=== PATIENT | male | born 1950 | race Caucasian/White ===

== ENCOUNTER 2017-02-22 17:01 | Inpatient (IN) | payer MEDICARE, OTHER ==
[~2017-02-22] VITALS: Ht 177.8 cm; Wt 76.8 kg
[2017-02-22] VITALS (10 sets, daily range): BP systolic 83–120; BP diastolic 61–83; PULSE 60–100; RESP 12–17; O2SAT 97
[2017-02-22] MEDS ORDERED: Heparin 1,000 Units/500 mL NS Premix IV ONE (17:08)
[2017-02-22] MEDS ORDERED: 0.9% Sodium Chloride 1,000 ML ONE (17:08)
[2017-02-22] MEDS ORDERED: Nitroglycerin 50,000 mcg/250 mL D5W Premix IV ONE (17:08)
[2017-02-22] MEDS ORDERED: Heparin 10,000 Unit/1,000 mL NS Premix IV ONE (17:08)
[2017-02-22] MEDS ORDERED: Heparin 1,000 Unit/mL 10 mL Inj ONE (17:08)
[2017-02-22] MEDS ORDERED: fentaNYL-PF 50 mCg/mL 2 mL Inj ONE (17:32)
[2017-02-22] MEDS ORDERED: Phenylephrine/NS-PF 100 mCg/mL 5 mL Syringe IVPUSH ONE (17:53)
[2017-02-22] MEDS ORDERED: DOPamine 800 mg/250 mL D5W Premix IV ONE (18:10)
--- NOTE | 2017-02-22 18:58 | CONS ---
[address] [address] CONSULTATION REPORT PATIENT: BRANDON KIMBROUGH : 1950 MR#: [id number] ADMIT: 02/22/2017 JOB ID: [id number] DATE OF SERVICE: 02/22/2017 CHIEF COMPLAINT: Chest discomfort. REFERRING PHYSICIAN: Dr. Hui at [facility]. CHIEF COMPLAINT: Chest discomfort. HISTORY OF PRESENT ILLNESS: This patient was transferred directly from [facility] Emergency Department to our dental lab technician. An EKG done at [facility] showed an acute anterior NV. The patient, at the time of interview, was having mild chest discomfort. He had received fentanyl en route. The patient states his chest discomfort has been going on for about a week. It was lasting 5-10 minutes. Today at around 1:00 it got worse. It went down his arms. He is finding it difficult to describe the pain; he states it was a dull discomfort. He denies any autonomic symptoms. As mentioned he came to the ER and was found to have an anterior NV and he was subsequently transferred to [facility]. PAST MEDICAL HISTORY: Mainly significant for prostrate cancer for which he had he had received radioactive seed implant. MEDICATIONS AT HOME: Flomax. ALLERGIES: None. FAMILY HISTORY: Negative for premature coronary artery disease. PERSONAL HISTORY: He is a smoker. He is a retired mailman. Denies any alcohol or drug abuse. He is in the process of relocating to [place]. REVIEW OF SYSTEMS: Comprehensive review of system was done and is as per HPI. Pertinent negatives are that there is no history of GI or bleeding. There is no upcoming surgery. There is no history of strokes or TIAs. PHYSICAL EXAMINATION: Elderly gentleman who looks his age. Mildly distressed. Neck: Supple. No JVD. Chest: Occasional rhonchi. Heart sounds: S1 and S2 regular. Positive S4. No murmurs or gallops. Abdomen: Soft. Femoral pulses 2+. DISTRIBUTION SPECIALIST: Alert and oriented x3. EKG is consistent with an acute anterior NV. Labs were unavailable. ASSESSMENT AND PLAN: This gentleman presented with an acute anterior NV. The patient verbalized consent for an intervention. The procedure was explained as well as the alternatives. The details of his angiogram are reported elsewhere. Briefly, he had a totally occluded proximal LAD, which was intervened upon. He has significant LV dysfunction. Hopefully this will improve over the next few days. He will be admitted to hospitalist service.u
--- NOTE | 2017-02-22 19:11 | DI95 ---
[address] [address] INTERVENTIONAL CARDIAC CATHETERIZATION PATIENT: BRANDON KIMBROUGH : 1950 MR#: [id number] ADMIT: 02/22/2017 JOB ID: [id number] DATE OF SERVICE: 02/22/2017 PROCEDURE: 1. Selective right and left coronary angiography. 2. Left heart catheterization. 3. Percutaneous intervention on the left anterior descending. INDICATION: Acute MT. PROCEDURAL DETAILS: The reader and the coders are referred to the procedure log for complete details. Briefly, a right femoral approach, 6-Indonesian system. ANGIOGRAPHIC FINDINGS: 1. Right coronary artery is a calcified vessel. It has mild diffuse disease of 20% to 30% in its entirety. No critical stenosis is noted. In the PDA distally, there is about a 50% lesion. 2. Left main: Short, no significant disease. 3. LAD: Totally occluded at its ostium. The remainder of the LAD shows heavy calcification. 4. Circumflex: A nondominant moderate to large caliber vessel. In its mid segment, it has about a 40% lesion. No critical stenosis is noted. 5. Left heart catheterization revealed an LVEDP of 18. There was no gradient upon pullback. INTERVENTIONAL REPORT: We then proceeded ahead with an intervention on the LAD. We were able to cross this with a Run-through wire. It was pre-dilated with a 2.0 balloon and then stented with a 3.25 x 15 mm stent. The proximal part of the lesion was dealt with with a 3.5 x 8 mm stent. Overlapping inflations were done at up to 24 atmospheres. Final angiographic result in the stented segment were excellent. Past the first major septal branch in the mid LAD there is an eccentric 60% lesion. Further down in the mid LAD at the bifurcation of the 3rd diagonal, there is another 50% to 60% lesion. Both of these were deliberately not intervened upon. LV-gram was a hand injection and showed severe LV dysfunction, apex and the anterolateral wall show severe hypokinesis to akinesis. The patient will have an echo in the morning. During this procedure, the patient was hypotensive. He was given Nishant-Synephrine and was briefly started on a dopamine drip at 10 mcg. His blood pressure came up nicely after opening up the artery and with a fluid bolus. The dopamine will gradually be tapered downward. The patient will be admitted to the hospitalist service with Cardiology to follow in the morning. Also, door to balloon time of 20 minutes.
[2017-02-22] MEDS ORDERED: 0.9% Sodium Chloride 400 ML (4 HRS) IV ONE (19:40)
[2017-02-22] MEDS ORDERED: Atropine 1 mg/10 mL (Code) Syringe IVPUSH PRN (19:40)
[2017-02-22] MEDS ORDERED: Sodium Chloride LOK Flush 10 mL Syringe IVFLUSH PRN (19:40)
[2017-02-22] MEDS ORDERED: 0.9% Sodium Chloride 250 ML BOLUS IV PRN (19:40)
[2017-02-22] MEDS ORDERED: Ondansetron 2 mg/mL 2 mL Inj IVPUSH PRN (19:40)
[2017-02-22] MEDS ORDERED: TAMS0.4C98 PO (22:58)
--- NOTE | 2017-02-22 23:01 | PCM.HPMED ---
Subjective Date of Service Feb 22, 2017 Primary Provider: Admitting Physician: Angelo Molina MD Primary Care Physician: Marlen Attending Physician: nAgelo Molina MD Admit Status: Direct Admit Chief Complaint: Chest pain History of Present Illness: Gary Byrnes is a 66-year-old male with past medical history significant for prostate cancer status post radiation and tobacco use who was directly admitted from [facility] ED due to EKG revealing acute anterior WI. Patient notes intermittent chest discomfort over the past week that he initially attributed to indigestion. Today the chest pain did not resolve and remained constant since late in afternoon. This precipitated his presentation to [facility]. He states he had some left arm numbness and tingling but aside from that denies any shortness of breath, palpitations, nausea, vomiting, diaphoresis, dizziness, or syncopal episodes. He was given aspirin and nitroglycerin at [facility] and then emergently transported to [facility]. Dr. Molina took him to the Senior Loan Processor which revealed a totally occluded proximal LAD which he stented with a drug-eluting stent. At the time of my examination after catheterization patient had some very minimal chest discomfort but otherwise had no complaints. Vitals at this time were temperature of 36.7, pulse 88, respiratory rate 16, blood pressure 94/72, oxygen sats 97% on 2 L nasal cannula. Review of Systems: Comprehensive review of systems was conducted with the patient and found to be negative except as noted above in HPI. Allergies Coded Allergies: No Known Allergies (Unverified , 02/22/17) Home Medications Flomax PMH Prostate cancer status post radioactive seed implant Tobacco use Surgical History Bilateral hernia repairs Sinus surgery Oral surgery Family History Sister in sleep thought to be cardiac in nature. Father with emphysema and CHF. Brother with ischemic heart disease. No premature cardiac family history. Social History Occupation: retired mailman Hx Alcohol Use: Yes (Heavy drinker. No alcohol in the last month. ) Hx Substance Use: No Hx Tobacco Use: Yes Smoking Status: Current Every Day Smoker Years of Smokin+ Living Arrangement: with Family Exam Vital Signs Vital Sign - Last Date Time Temp Pulse Resp B/P Pulse Ox O2 Delivery O2 Flow Rate FiO2 02/22/17 21:30 74 17 91/68 02/22/17 20:00 Supplement Oxygen 02/22/17 20:00 36.7 97 2.00 Exam General: No acute distress, well-developed, well-nourished, appropriately interactive HEENT: Normocephalic, atraumatic. External ears without defect. Pupils equal, round, and reactive to light and accommodation. Anicteric sclerae, moist conjunctivae, and no lid lag. Oropharynx free of erythema and cobble stoning with moist mucosa. Neck: Supple with full range of motion. No jugular venous distension. No bruits. No lymphadenopathy or thyromegaly. Cardiovascular: Regular rate and rhythm with no murmurs, rubs, or gallops appreciated Pulmonary: Faint wheezes bilaterally. Normal respiratory effort with no use of accessory muscles. Abdomen: Bowel tones present. Soft, nontender, nondistended. No hepatosplenomegaly or masses appreciated. Extremities: Right femoral catheterization site with dressing in place and no surrounding erythema. No clubbing, cyanosis, edema, or lymphadenopathy appreciated. Skin: Normal temperature, turgor, and texture; no rash, ulcers, or subcutaneous nodules appreciated. Neurological: Cranial nerves grossly intact. Normal muscle strength, tone, and bulk. Reflexes, coordination, and sensory function within normal limits. No known gait impairment. Psychiatric: Normal mood and affect. Alert and oriented to person, place, and time. Lab and Diagnostics 12-lead ECG Initial EKG at [facility] showed ST elevations in leads V2 through V5. Assessment & Plan Gary Byrnes is a 66-year-old male with past medical history significant for prostate cancer status post radiation and tobacco use who was directly admitted from [facility] ED due to EKG revealing acute anterior WI. Admitted for emergent cardiac catheterization. STEMI status post cardiac catheterization of the LAD, present on admission, active. - ECG at [facility] revealed ST elevation in leads V2 through V5. Emergently transferred and taken to medical laboratory technicians by Dr. Molina with placement of a drug-eluting stent in the proximal LAD. - Lipid panel pending. - Supplemental oxygen as needed. - Aspirin 81 mg initially received and continued daily. - Clopidogrel 75 mg daily. - Sublingual nitroglycerin and morphine as needed. - Metoprolol tartrate 25 mg every 6 hours. - Lisinopril 2.5 mg daily. - Atorvastatin 40 mg daily. - Cardiology following. Appreciate time and recommendations. Left ventricular dysfunction, present on admission, active. - Secondary to occluded LAD. Anticipate improvement over the next few days with stenting. - Echocardiogram ordered for tomorrow. -Treatment as above. Tobacco use disorder, present on admission, active. - Patient has a [id number] smoking history. - Declines nicotine patch at this time. - Smoking cessation encouraged. History of prostate cancer, present on admission, chronic. - Home regimen of Flomax held at this time as blood pressure has been labile. PRN Medications - Acetaminophen as needed for mild pain/fever/headache - Bowel regimen as needed - Antiemetic as needed Patient is admitted under inpatient status with expected length of stay greater than 2 midnights due to severity of presenting symptoms, risk of adverse event, and complexity of treatment plan. Pain Evaluation: Adequate Pain Control GI Prophylaxis: Not indicated Resuscitation Status: CPR: Attempt Resuscitation Time spent 1 hour critical care time spend Attending Statement The patient was seen and examined together with Dr. Aranda on 02/22 and I agree with the history, exam and plan as outlined in the note above. NATALEE ARANDA DO Feb 22, 2017 21:36 Philip Fernández MD Feb 23, 2017 02:38
[2017-02-22 23:03] LABS: BASOPHILS % (AUTO) 0.4 % (0-3); EOSINOPHILS % (AUTO) 0.2 % (0-5); MONOCYTES % (AUTO) 9.6 % (4-12); Mean Corpuscular Hemoglobin 33.7 pg (27.0-35.0); Mean Corpuscular Volume 94.6 fL (81-100); NEUTROPHILS % (AUTO) 74.8 % (40-74); Platelet Count 252 bil/L (150-400)
[2017-02-22 23:35] LABS: Magnesium 1.8 mg/dL (1.6-2.6); Phosphorus 3.7 mg/dL (2.5-4.9)
[2017-02-23] VITALS (10 sets, daily range): BP systolic 86–104; BP diastolic 51–67; PULSE 56–64; RESP 12–21; O2SAT 95–100
[2017-02-23] MEDS ORDERED: 0.9% Sodium Chloride 250 ML IV ONE (00:20)
[2017-02-23 01:32] LABS: APPEARANCE,URINE CLEAR (CLEAR,HAZY); COLOR,URINE YELLOW (YELLOW)
[2017-02-23 01:33] LABS: OCCULT BLOOD,URINE NEGATIVE (NEGATIVE); UROBILINOGEN,URINE NORMAL (NORMAL)
--- NOTE | 2017-02-23 04:51 | NUR ---
P) Admit Pt. admitted to CCU from labor relations consultant at approx. 1855, s/p STEMI, stent to LAD. R groin dressing C/D/I, area soft and slightly tender, pt. initially had chest pressure 3-5/10, resolved. Cardiac rhythm afib, occasionally sinus, lots of ectopy and runs of V-tach, BP low though with MAP's generally in the 60's, systolics often in the 80's. Lungs with slightly coarse and decreased breath sounds, pedal pulses present and weak bilat. I) Consulted frequently with Dr. Woods regarding BP and heart rate, (often in the 50's, as low as 47bpm.) Bolus'd with 250ml NS x4, education regarding pulmonary hygiene and groin support with cough. E) Ectopy slowly decreasing, BP slowly rising, of note pt. on 2L per N/C, when this became disconnected he dropped to 89-91% on room air. Pt. states chest pressure has resolved and he has some low back pain from unfamiliar bed and positioning. Addendum: 02/23/17 at 0633 by EMILE SMITH RN Metoprolol held due to hypotension and bradycardia, statin held as pt. was supine and did not want to try to take pill, states he is willing to take it tonight.
--- NOTE | 2017-02-23 08:22 | NUR ---
Cardiac Borderline blood pressure, systolic upper 80s to 90s. MAP >65. Continues in SB with IVCD and inverted t-waves, HR mid 50s. Denies chest discomfort. Right groin site non-tender and soft to palpitation, no sign of active bleeding. +1 bilateral pedal pulses. Lisinopril and metoprolol scheduled for 8:30, medications held due to blood pressure and bradycardia. Dr Kaye notified and Dr Bynum paged. Will continue to monitor.
--- NOTE | 2017-02-23 10:53 | PCM.PNMED ---
Subjective Date of Service Feb 23, 2017 Subjective Mr. Byrnes is a 66-year-old male with past medical history significant for prostate cancer s/p radiation and tobacco use who was directly admitted from [facility] ED due to EKG revealing acute anterior PR. Admitted for emergent cardiac catheterization, found 100% occlusion and LAD, received drug-eluting stent placement yesterday Overnight patient was found to be hypotensive requiring total of 1 L normal saline bolus and 250 mL increments, sinus bradycardia. Denied any chest discomfort. Catheter insertion site remains tender to palpation. Patient in good spirits, does not state he has any chest pain or discomfort. Exam Vital Signs Vital Sign - Last Date Time Temp Pulse Resp B/P Pulse Ox O2 Delivery O2 Flow Rate FiO2 02/23/17 08:59 56 21 96/51 95 Room Air 02/23/17 07:07 36.7 2.00 Intake and Output 02/22/17 02/22/17 02/23/17 Cumulative From/Thru 15:00 23:00 07:00 02/22/17 19:46 - 02/23/17 06:06 Intake Total 1514 ml 1514 ml Output Total 1100 ml 1100 ml Balance 414 ml 414 ml Intake Oral 50 ml 50 ml IV Total 1464 ml 1464 ml Output Urine Total 1100 ml 1100 ml Exam General: Awake and alert laying in hospital bed in no acute distress, thin, appropriately interactive HEENT: Normocephalic, atraumatic. External ears without defect. Pupils equal, round, and reactive to light and accommodation. Tobacco stains on barton surrounding oral cavity. Neck: Supple with full range of motion. No jugular venous distension. Cardiovascular: Cardiac rate with regular rhythm with no murmurs appreciated. Pulmonary: Right lower lobe crackles, Normal respiratory effort with no use of accessory muscles. Abdomen: Bowel tones present. Soft, nontender, nondistended. Extremities: No clubbing, cyanosis, edema, or lymphadenopathy appreciated. Skin: Normal temperature, turgor, and texture Neurological: Cranial nerves grossly intact. Psychiatric: Normal mood and affect. Alert and oriented to person, place, and time. IVs and Medications Medications Reviewed: Medications were reviewed in detail Lab and Diagnostics Result Diagram: 02/22/17 2301 02/23/17 0807 12-lead ECG Initial EKG at [facility] showed ST elevations in leads V2 through V5. Assessment & Plan Gary Byrnes is a 66-year-old male with past medical history significant for prostate cancer status post radiation and tobacco use who was direct admit from [facility] ED, status post cardiac cath with stent placement. Hospital day 2. STEMI status post cardiac catheterization of the LAD, present on admission, active. - ECG at [facility] revealed ST elevation in leads V2 through V5. Emergently transferred and taken to wetlands conservation laborer by Dr. Molina with placement of a drug-eluting stent in the proximal LAD. - Supplemental oxygen as needed. - Aspirin 81 mg - Clopidogrel 75 mg daily. - Sublingual nitroglycerin and morphine as needed. - Held Metoprolol tartrate 25 mg every 6 hours, and early hemodynamic state - Lisinopril 2.5 mg daily. - Atorvastatin 40 mg daily. - Cardiology following. Appreciate time and recommendations. Left ventricular dysfunction, present on admission, active. - Secondary to occluded LAD, s/p drug-eluting stent placement - Echocardiogram pending - Treatment as above. Tobacco use disorder, present on admission, active. - Patient has a [id number] smoking history. - Declines nicotine patch at this time. - Smoking cessation encouraged. History of prostate cancer, present on admission, chronic. - Home regimen of Flomax held at this time as blood pressure has been labile. PRN Medications - Acetaminophen as needed for mild pain/fever/headache - Bowel regimen as needed - Antiemetic as needed Patient is admitted under inpatient status with expected length of stay greater than 2 midnights due to severity of presenting symptoms, risk of adverse event, and complexity of treatment plan. Anticipate difficulty with follow-up treatment on discharge. GI Prophylaxis: Not indicated VTE Prophylaxis: Other Resuscitation Status: CPR: Attempt Resuscitation Time spent 30 minutes Attending Statement Patient has been seen and examined by myself with medical lab tech instructor and agree with above history, physical, assessment and plan. KEELEY VINSON DO Feb 23, 2017 10:53 Lucero Kaye MD Feb 23, 2017 17:21
[2017-02-23] MEDS ORDERED: [UNRECOGNIZED DRUG - OTHER] PO (11:22)
[2017-02-23] MEDS ORDERED: CHOL10008 PO (11:23)
--- NOTE | 2017-02-23 15:56 | DRSVH ---
[facility] [address] [place] [address] Echocardiogram Report Name: BRANDON KIMBROUGH LStudy Corey e: 02/23/2017 Height: 70 in Hospital Exam Location: [facility] Weight: 168 lb Gender: Other BSA: 1.9 m2 : 1950 Age: 66 yrs BP: 85/62 mmHg Reason For Study: STEMI Ordering Physician: Performed By: Sahil Oakley Interpretation Summary The ejection fraction is estimated to be 30-35%. There is extensive hypokinesis in the region supplied by the LAD. Mid to distal anterior wall, anteroseptum, apex, and distal inferior segment are serverly hypokinetic. Mid anterolateral is hypokinetic. There is no significant valvular heart disease. Procedure: A two-dimensional transthoracic echocardiogram with color flow and Doppler was performed. The study quality was technically good. There is no prior echocardiogram noted for this patient. The patient was in sinus bradycardia with heart rates between 52-65 bpm during the exam. Left Ventricle: The left ventricle is normal in size. There is normal left ventricular wall thickness. There is mild proximal septal thickening noted. The ejection fraction is estimated to be 30-35%. There is extensive hypokinesis in the region supplied by the LAD. Mid to distal anterior wall, anteroseptum, apex, and distal inferior segment are serverly hypokinetic. Mid anterolateral is hypokinetic. Right Ventricle: The right ventricle grossly appears normal in size with probable normal systolic function. Atria: Both atria are normal in size. The interatrial septum is intact with no evidence for an atrial septal defect. Mitral Valve: The mitral valve is normal. There is trace mitral regurgitation. Aortic Valve: The aortic valve is normal in structure and function. No aortic regurgitation is present. Tricuspid Valve: The tricuspid valve is normal. Pulmonary artery pressures cannot be estimated because of the lack of a measurable TR jet velocity. Pulmonic Valve: The pulmonic valve leaflets are thin and pliable; valve motion is normal. There is no pulmonic valvular regurgitation. Great Vessels: The aortic root is normal size. The ascending aorta is mildly enlarged. The pulmonary artery is normal size. The IVC is dilated (diameter is greater than 2.1 cm) yet it collapses greater than 50% with a sniff. This suggests a right atrial pressure of 8 mm Hg. Pericardium/ Pleura There is no pericardial effusion. There is no pleural effusion. MMode/2D Measurements & Calculations LVIDd: 5.0 cm RA long axis LVOT diam LVIDs: 3.8 cm LA A2 area: 18.4 cm FS: 24.5 % LA A4 area: 15.4 cm RA area AoV Opening EPSS: 0.78 cm LA length (vol): 4.7 cm IVSd: 1.2 cm LA vol: 51.8 ml : 15.0 cm Ao root diam LVPWd: 0.90 cm LA vol index RA vol : 35.6 ml asc Aorta RA Diam: 3.9 cm IVC diam: 3.3 cm : 18.4 mm2 LV hensley. diameter/BSA LV sys. diameter/BSA RVD1 (basal) TAPSE: 2.0 cm (cm/m^2): 2.6 (cm/m^2): 1.9 Doppler Measurements & Calculations Ao V2 max: 121.2 cm/secMV E max teofilo MV E/A: 1.2 PA V2 max Ao max P.9 mmHg : 55.6 cm/sec Med Peak E' Teofilo : 70.5 cm/sec Ao mean P.2 mmHg MV A max teofilo PA mean PG LVOT Max Teofilo : 47.3 cm/sec E/E' med: 10.0 : 1.1 mmHg : 106.4 cm/sec Lat Peak E' Teofilo ALVARO(I,D): 3.2 cm sev ratio: 0.84 E/E' lat: 8.0 E/e' average: 9.0 MV dec time: 0.15 sec Ao V2 mean LV V1 max PG PA V2 mean : 84.4 cm/sec : 49.4 cm/sec Ao V2 VTI: 23.1 cmLV V1 VTI: 19.4 cm PA pr(Accel) ALVARO(V,D): 3.3 cm2 : 27.6 mmHg ALVARO indexed to BSA (cm^2/m^2): 1.6 Electronically signed by: Angelo Molina on Reading Physician:02/23/2017 03:55 PM
--- NOTE | 2017-02-23 17:32 | NUR ---
PCC Assumed pt care at 1640, report taken from Kylie Ramirez CCU RN. Pt resting, notes on white board to remind pt to ask MD during rounds. Care continues.
--- NOTE | 2017-02-23 17:47 | NUR ---
Social Work- Initial Assessment/Multidisciplinary Rounds Data: See Initial Assessment and DPOA Intervention for additional information. Pt is a 66 year old male admitted for STEMI per H&P. Pt's insurance is [employer]. Pt's PCP is Andrés Handley M.D at [facility] in [place]. Pt's readmit risk score is not entered at this time. Pt discussed in rounds, pt is likely to discharge home. Pt will require PCP and Cardiology follow up. Pt is s/p stent placement. It is recommended pt stop drinking and smoking. SW acknowledges PCP and Cardiology follow up order. SW met with pt at bedside regarding discharge plan, SW role explained. Pt alert and oriented x3. Pt's capacity for self-care assessed. Pt resides near [place] with his on a farm. Pt is independent with ADLs and self-care. No concerns identified. Pt has no HH or SNF history. Pt uses no DME and drives. Pt states that he has DPOA, SW requested this paperwork. SW discussed PCP follow up, pt states that he is moving to [place] soon and does not want to switch his PCP again before his move. Pt is agreeable that he will follow up in [place] with his original PCP Dr. Handley. Pt is hopeful that his Cardiology follow up could be done closer to [place], but is agreeable to driving to as necessary. Pt also had concerns related to the cost of his Rx. SW discussed that we cannot silver prescriptions until they are known. Pt requests that REFERENCE DATA EXPERT run scripts prior to discharging to ensure pt can afford them. SW also discussed etoh and tobacco cessation. Pt states he is motivated to stop smoking and drinking, acknowledges the negative impact on his health. Pt declined any resources related to CD. Pt will discharge home with his to transport via POV. SW provided phone number and plan on whiteboard. Discharge Planning checklist given. Pt agreeable to plan. Assessment: Pt who is independent at baseline. Plan: SW to discuss with pt's d/c prescriptions and follow up plan. SW may have to check with pharmacy regarding pt's Rx coverage prior to d/c. Pt will discharge home with his to transport via POV. SW will continue to follow. PADILLA Stephens Addendum: 02/23/17 at 1756 by GHAZAL MESSINA Amended: Links added.
--- NOTE | 2017-02-23 18:53 | PROG NOTE ---
[address] [address] PROGRESS NOTE PATIENT: BRANDON KIMBROUGH : 1950 MR#: [id number] ADMIT: 02/22/2017 JOB ID: [id number] DATE: 02/23/2017 Patient came in with an anterior WV, proximal LAD stent. He still does have a mid stenosis estimated in the range of at least 50-60%. Apparently this was deliberately not intervened upon. His LV function is reduced with anterior, anteroseptal wall hypokinesis. He has been having relative hypotension. Therefore, the medication doses that were written (the metoprolol and the lisinopril) were not given. The patient is doing well. He has no more chest pain. He feels well. PHYSICAL EXAMINATION: Blood pressure 193/57, heart rate 58, afebrile, and sats are 96% on room air. General: In no acute distress. Speaking in full sentences without being short of breath. CURRENT MEDICATIONS: Include: 1. Tylenol. 2. Plavix 75. 3. Aspirin 81. 4. Lipitor 40. 5. Again metoprolol and lisinopril were written at higher doses and thus none were given. LABORATORIES: Show white count 8.1, H and H 13 and 36.5, platelets of 252,000; that is from yesterday. His basic metabolic shows sodium 139, potassium 3.7, chloride and bicarb 103 and 20 respectively, and BUN and creatinine 9 and 0.61. CPK 3070, CPK MB 377. Troponin 10.87. Troponins have trended down. An echocardiogram was read and this shows an EF of 30, 35% and with wall motion abnormalities as expected. IMPRESSION: The patient is doing well. He had a fairly large anterior myocardial infarction. He has reduced the hypotension which is not entirely unexpected given his myocardial infarction. PLAN: Continue with aspirin and Plavix and statin. I will start low-dose metoprolol 12.5 b.i.d., and see if he can titrate this up as he tolerates. Will follow for any arrhythmias. [facility]
[2017-02-24 03:29] LABS: BASOPHILS % (AUTO) 0.6 % (0-3); EOSINOPHILS % (AUTO) 2.5 % (0-5); MONOCYTES % (AUTO) 9.2 % (4-12); Mean Corpuscular Hemoglobin 33.4 pg (27.0-35.0); Mean Corpuscular Volume 97.2 fL (81-100); NEUTROPHILS % (AUTO) 72.2 % (40-74); Platelet Count 218 bil/L (150-400)
[2017-02-24 03:35] VITALS: BP 91/56; PULSE 61; RESP 16; O2SAT 97
--- NOTE | 2017-02-24 05:22 | NUR ---
Hypotension Blood pressure at HS was 104/67; HS 12.5mg PO metoprolol administered. Decrease to blood pressure on reassessment - 87/60. MD shore, aware of vitals signs, instructed to monitor at this time. BP throughout shift maintained stable at 94/54 and 91/56. Patient asymptomatic. R groin C/D/I. Independent in room, tolerates well. Able to rest throughout shift.
[2017-02-24 05:37] VITALS: PULSE 61
[2017-02-24 08:00] VITALS: BP 95/53; PULSE 67; RESP 16; O2SAT 95
[2017-02-24 08:57] VITALS: PULSE 74
--- NOTE | 2017-02-24 12:21 | PCM.DIMED ---
Discharge Instructions Date of Service Feb 24, 2017 Dates of Hospitalization Feb 22, 2017 at 19:30 Discharge Diagnosis Discharge Diagnosis STEMI with LAD occlusion and drug-eluting stent placed Diet Discharge Diet: Heart Healthy Activity Discharge Activity: Other (Limited as per cardiology instructions) Call your provider Call your provider for: Fever or Chills, Shortness of breath, Bleeding, Chest pain, Vomitting, Excessive diarrhea, Weakness (unilateral) Patient Instructions Follow-up Provider: Angelo Molina MD Follow-up with PCP in: 1 week Provider: KEELEY VINSON DO Follow-up in: 1 week Lucero Kaye MD Feb 24, 2017 12:21
[2017-02-24] MEDS ORDERED: NITR0.4T SL (12:24)
[2017-02-24] MEDS ORDERED: ASPI81TA3 PO (12:24)
[2017-02-24] MEDS ORDERED: METO25TA6 PO (12:24)
[2017-02-24] MEDS ORDERED: CLOP75TA28 PO (12:24)
[2017-02-24] MEDS ORDERED: ATOR20TA65 PO (12:24)
--- NOTE | 2017-02-24 12:27 | NUR ---
Social Work: Readiness for Discharge/Multidisciplinary Rounds D: EMR reviewed. Pt is on day 2 of hospitalization. Pt discussed in multidisciplinary rounds and is medically stable for discharge home today. No SW needs identified, no MD orders received. Pt's discharge discussed with MD - no other concerns identified. Pt to transport home via POV with spouse today. SW discussed rx needs at discharge and concerns regarding costs. Pt provided with SW phone number for possible assistance with new rx costs. SW updated RN in multidisciplinary rounds. SW will continue to follow until time of discharge. A: Pt who is independent at baseline P: Pt to discharge home with spouse today via POV. Pt's discharge discussed with MD - no other concerns identified. SW discussed rx needs at discharge and concerns regarding costs. Pt provided with SW phone number for possible assistance with new rx costs. SW updated RN in multidisciplinary rounds. SW will continue to follow until time of discharge. PADILLA Osborn
--- NOTE | 2017-02-24 12:37 | PCM.DC.MED ---
Discharge Summary Date of Service Feb 24, 2017 Dates of Hospitalization Date of Hospital Admission Feb 22, 2017 at 19:30 Date of Discharge: Feb 24, 2017 Providers: Admitting Physician: Angelo Molina MD Primary Care Physician: Marlen Attending Physician: Ramesh Kaye MD Diagnosis at Time of Discharge Diagnosis at Time of Discharge STEMI with LAD occlusion and drug-eluting stent placed Consultations Cardiology Procedures ECG 12 Lead Initial EKG at [facility] showed ST elevations in leads V2 through V5. Cardiac Echo Impression Interpretation Summary The ejection fraction is estimated to be 30-35%. There is extensive hypokinesis in the region supplied by the LAD. Mid to distal anterior wall, anteroseptum, apex, and distal inferior segment are serverly hypokinetic. Mid anterolateral is hypokinetic. There is no significant valvular heart disease. Brief History Gary Byrnes is a 66-year-old male with past medical history significant for prostate cancer status post radiation and tobacco use who was directly admitted from [facility] ED due to EKG revealing acute anterior WV. Patient notes intermittent chest discomfort over the past week that he initially attributed to indigestion. Today the chest pain did not resolve and remained constant since late in afternoon. This precipitated his presentation to [facility]. He states he had some left arm numbness and tingling but aside from that denies any shortness of breath, palpitations, nausea, vomiting, diaphoresis, dizziness, or syncopal episodes. He was given aspirin and nitroglycerin at [facility] and then emergently transported to [facility]. Dr. Molina took him to the Special Delivery Worker which revealed a totally occluded proximal LAD which he stented with a drug-eluting stent. At the time of my examination after catheterization patient had some very minimal chest discomfort but otherwise had no complaints. Vitals at this time were temperature of 36.7, pulse 88, respiratory rate 16, blood pressure 94/72, oxygen sats 97% on 2 L nasal cannula. Hospital Course Gary Byrnes is a 66-year-old male with past medical history significant for prostate cancer status post radiation and tobacco use who was direct admit from [facility], status post cardiac cath with stent placement. Hospital day 2. STEMI status post cardiac catheterization of the LAD, present on admission, active. - ECG at [facility] revealed ST elevation in leads V2 through V5. Emergently transferred and taken to labor mediator by Dr. Molina with placement of a drug-eluting stent in the proximal LAD. - Supplemental oxygen as needed. - Aspirin 81 mg - Clopidogrel 75 mg daily. - Sublingual nitroglycerin and morphine as needed. - Held Metoprolol tartrate 25 mg every 6 hours, and early hemodynamic state - Lisinopril 2.5 mg daily was stopped due to hypotension but will continue with low-dose metoprolol therapy. - Atorvastatin 40 mg daily. - Cardiology following. Appreciate time and recommendations. PROCEDURE: 1. Selective right and left coronary angiography. 2. Left heart catheterization. 3. Percutaneous intervention on the left anterior descending. INDICATION: Acute WV. PROCEDURAL DETAILS: The reader and the coders are referred to the procedure log for complete details. Briefly, a right femoral approach, 6-Portuguese system. ANGIOGRAPHIC FINDINGS: 1. Right coronary artery is a calcified vessel. It has mild diffuse disease of 20% to 30% in its entirety. No critical stenosis is noted. In the PDA distally, there is about a 50% lesion. 2. Left main: Short, no significant disease. 3. LAD: Totally occluded at its ostium. The remainder of the LAD shows heavy calcification. 4. Circumflex: A nondominant moderate to large caliber vessel. In its mid segment, it has about a 40% lesion. No critical stenosis is noted. 5. Left heart catheterization revealed an LVEDP of 18. There was no gradient upon pullback. INTERVENTIONAL REPORT: We then proceeded ahead with an intervention on the LAD. We were able to cross this with a Run-through wire. It was pre-dilated with a 2.0 balloon and then stented with a 3.25 x 15 mm stent. The proximal part of the lesion was dealt with with a 3.5 x 8 mm stent. Overlapping inflations were done at up to 24 atmospheres. Final angiographic result in the stented segment were excellent. Past the first major septal branch in the mid LAD there is an eccentric 60% lesion. Further down in the mid LAD at the bifurcation of the 3rd diagonal, there is another 50% to 60% lesion. Both of these were deliberately not intervened upon. LV-gram was a hand injection and showed severe LV dysfunction, apex and the anterolateral wall show severe hypokinesis to akinesis. The patient will have an echo in the morning. During this procedure, the patient was hypotensive. He was given Nishant-Synephrine and was briefly started on a dopamine drip at 10 mcg. His blood pressure came up nicely after opening up the artery and with a fluid bolus. The dopamine will gradually be tapered downward. The patient will be admitted to the hospitalist service with Cardiology to follow in the morning. Also, door to balloon time of 20 minutes. Per cardiology on February 23: IMPRESSION: The patient is doing well. He had a fairly large anterior myocardial infarction. He has reduced the hypotension which is not entirely unexpected given his myocardial infarction. PLAN: Continue with aspirin and Plavix and statin. I will start low-dose metoprolol 12.5 b.i.d., and see if he can titrate this up as he tolerates. Will follow for any arrhythmias. -She was seen by cardiology day of discharge and patient was ambulating without problems. However recommended against initiating an MERVIN inhibitor given the relative hypotension that the patient is experiencing and would not want that to go lower. He will be however discharged home on low-dose metoprolol tartrate twice a day. Left ventricular dysfunction, present on admission, active. - Secondary to occluded LAD, s/p drug-eluting stent placement - Echocardiogram : See above report - Treatment as above. Tobacco use disorder, present on admission, active. - Patient has a [id number] smoking history. - Declines nicotine patch at this time. - Smoking cessation encouraged. History of prostate cancer, present on admission, chronic. - Home regimen of Flomax held at this time as blood pressure has been labile. Exam Vital Signs (Last) Date Time Temp Pulse Resp B/P Pulse Ox O2 Delivery O2 Flow Rate FiO2 02/24/17 08:57 74 02/24/17 08:00 36.6 16 95/53 95 Room Air 02/23/17 07:07 2.00 Exam Constitutional: 66-year-old male in no acute distress Head: Normocephalic atraumatic Eyes: PERRLA DC EOMI Mouth: No lesions Neck: No adenopathy Chest: Clear to auscultation. Cor: Regular rate and rhythm S1-S2 without murmur Abdomen: Soft nontender bowel sounds present Extremities: No pedal edema Skin: No rashes Psych: Mood and affect are appropriate Neuro: Alert and oriented 3, motor strength is intact bilaterally Test 02/22/17 23:01 02/23/17 01:22 02/23/17 08:27 02/24/17 00:12 Phosphorus Level 3.7mg/dL (2.5-4.9) Triglycerides Level 80mg/dL (0-149) Cholesterol Level 167mg/dL (100-199) LDL Cholesterol, Calculated 96.000mg/dL (0-99) VLDL Cholesterol 16.000mg/dL HDL Cholesterol 55mg/dL (>39) Cholesterol/HDL Ratio 3.04 (0.0-4.4) Thyroid Stimulating Hormone (TSH) 1.480uIU/mL (0.450-4.500) Hold Simms Top Tube Received (Received) Urine Color Yellow (YELLOW) Urine Appearance Clear (CLEAR,HAZY) Urine pH 7.0 (5.0-8.0) Urine Specific [place] 1.005 (1.003-1.035) Urine Protein Negativemg/dL (NEG,TRACE) Urine Glucose (UA) Negativemg/dL (NEGATIVE) Urine Ketones Negativemg/dL (NEGATIVE) Urine Occult Blood Negative (NEGATIVE) Urine Nitrite Negative (NEGATIVE) Urine Bilirubin Negative (NEGATIVE) Urine Urobilinogen Normalmg/dL (NORMAL) Urine Leukocyte Esterase Negative (NEGATIVE) Urine RBC 0-2/hpf (0-2) Urine WBC 0-5/hpf (0-5) Urine Epithelial Cells Occasional/hpf (NONE-MOD) Urine Crystals None seen (NONE SEEN) Urine Bacteria None/hpf (NONE-FEW) Urine Hyaline Casts None/lpf (NONE) Urine Granular Casts None seen (NONE SEEN) Urine Waxy Casts None seen (NONE SEEN) Urine Red Blood Cell Casts None seen (NONE SEEN) Urine White Blood Cell Casts None seen (NONE SEEN) Urine Mucus None seen (None Seen) Urine Trichomonas None seen (NONE SEEN) Urine Yeast None (NONE SEEN) Urinalysis Comment None Urine Culture Reflexed Not indicated Total Creatine Kinase 3070U/L (21-232) Creatine Kinase MB 377.3ng/mL (0.0-10.4) Creatine Kinase MB % 12.3% (0.0-5.0) Troponin T 8.14ug/L (0.0-0.011) Test 02/24/17 03:18 White Blood Count 8.8th/mm3 (3.8-10.1) Red Blood Count 3.89mil/mm3 (4.40-5.80) Hemoglobin 13.0g/dL (13.8-17.2) Hematocrit 37.8% (41.0-50.0) Mean Corpuscular Volume 97.2fL (81-100) Mean Corpuscular Hemoglobin 33.4pg (27.0-35.0) Mean Corpuscular Hemoglobin Concent 34.4% (32.0-37.0) Red Cell Distribution Width 11.7% (12.3-15.4) Platelet Count 218bil/L (150-400) Neutrophils (%) (Auto) 72.2% (40-74) Lymphocytes (%) (Auto) 15.4% (14-46) Monocytes (%) (Auto) 9.2% (4-12) Eosinophils (%) (Auto) 2.5% (0-5) Basophils (%) (Auto) 0.6% (0-3) Sodium Level 140mEq/L (134-144) Potassium Level 4.2mEq/L (3.5-5.2) Chloride Level 104mEq/L (97-108) Carbon Dioxide Level 24mmol/L (18-29) Blood Urea Nitrogen 8mg/dL (8-27) Creatinine 0.70mg/dL (0.76-1.27) Estimat Glomerular Filtration Rate 120mL/min (>59) Glucose Level 113mg/dL (60-99) Calcium Level 8.4mg/dL (8.5-10.1) Magnesium Level 2.0mg/dL (1.6-2.6) Total Bilirubin 0.7mg/dL (0.0-1.2) Aspartate Amino Transf (AST/SGOT) 245U/L (0-50) Alanine Aminotransferase (ALT/SGPT) 49U/L (0-44) Alkaline Phosphatase 42U/L (25-160) Total Protein 5.2g/dL (6.4-8.4) Albumin 3.3g/dL (3.4-5.0) Discharge Medications Discharge Medications Aspirin Chew (Aspirin Chew) 81 Mg Chew 81 MG PO DAILY Prescribed by: RAMESH KAYE MD Atorvastatin Calcium (Atorvastatin Calcium) 20 Mg Tablet 40 MG PO HS Prescribed by: RAMESH KAYE MD Cholecalciferol (Vitamin D3) (Vitamin D3) 1,000 Unit Tab.chew 1,000 UNIT PO DAILY (Reported) Clopidogrel (Clopidogrel) 75 Mg Tablet 75 MG PO DAILY Prescribed by: RAMESH KAYE MD Metoprolol Tartrate (Metoprolol Tartrate) 25 Mg Tablet 12.5 MG PO BID Prescribed by: RAMESH KAYE MD Multivits-Min/FA/Lycopene/Lut ([facility] Multivit Caplet) 1 Each Tablet 1 EACH PO DAILY (Reported) Tamsulosin (Flomax) 0.4 Mg Capsule 0.4 MG PO DAILY (Reported) As needed Nitroglycerin SL (Nitrostat) 0.4 Mg Tab.subl 0.4 MG SL Q5MIN PRN PRN For Chest Pain IF SBP > 90 Prescribed by: RMAESH KAYE MD Followup Plan Disposition: Home Discharge Diet: Heart Healthy Discharge Activity: Other (Limited as per cardiology instructions) Follow-up Provider: Angelo Molina MD Follow-up with PCP in: 1 week Provider: KEELEY VINSON DO Follow-up in: 1 week Time spent 60 minutes copies to: [facility]; Angelo Molina MD, Cheryl A MD Feb 24, 2017 12:37
--- NOTE | 2017-02-24 12:39 | PROG NOTE ---
[address] [address] PROGRESS NOTE PATIENT: BRANDON KIMBROUGH : 1950 MR#: [id number] ADMIT: 02/22/2017 JOB ID: [id number] DATE: 02/24/2017 CARDIOLOGY PROGRESS NOTE: CHIEF COMPLAINT: Patient with an anterior AZ status post stenting of the proximal LAD. He has cardiomyopathy resulting from that. He also has relative hypotension which is likely related to the [place] as well. SUBJECTIVE: He feels great. He denies chest pain, chest pressure. He has been walking around without problems. He denies any lightheadedness or dizziness. LABORATORY AND DIAGNOSTIC STUDIES: EKG shows sinus rhythm with evolving anterior changes. Telemetry shows mostly sinus rhythm. He did have some short periods of what looks like AIVR but he was asymptomatic with this. CURRENT MEDICATIONS: Include metoprolol 12.5 b.i.d., Plavix 75 daily, aspirin 81 mg a day, atorvastatin 40 mg q.h.s., and other p.r.n. medications. PHYSICAL EXAMINATION: Blood pressure is 95/53, heart rate 67. He is afebrile. Sats are 95% on room air. General: In no acute distress. Speaking in full sentences without apparent shortness of breath. Head and neck: Normocephalic, atraumatic. Neck: No obvious JV distention. Heart: Regular rate and rhythm. Lungs: Sound clear. Abdomen: Soft. Back: No CVA tenderness to palpation. Groin site is good, without significant bruising, tenderness, or hematoma. Good distal pulses. No edema. LABORATORIES: Show white count 8.8, H and H 13 and 37.8, platelets of 218,000. Chemistry shows sodium 140, potassium 4.2, chloride and bicarb 104 and 24 respectively, BUN and creatinine 8 and 0.7. AST and ALT 245 and 49, which have trended down from initial labs. Peak CPK was 3070. Troponins have stabilized in the range of 8. IMPRESSION: The patient is doing well after treatment for an anterior myocardial infarction with mid left anterior descending (LAD) stenosis that was not intervened upon, but Dr. Molina did not think it was hemodynamically significant. He has a diminished ejection fraction. PLAN: 1. He has relatively low blood pressures but he is tolerating low-dose beta dacia. Although we would like to add MERVIN inhibitor, this cannot be done given relative hypotension and primary need for beta dacia. 2. Continue with aspirin, Plavix, and statin. I explained the importance of these medications including the issues with stopping Plavix and the risk of stent thrombosis. He will also be enrolled in cardiac rehab. Smoking cessation is encouraged.
--- NOTE | 2017-02-24 14:00 | NUR ---
D/C note.. has been up amb in halls and room and is carlitos activity well. Denies any chest pain or SOB. B/P remains marginal with systolic of 95/ but pt is asymptomatic. MD updated. Seen by MD and d/c order received. D/C instructions reviewed and RX given. Pt requested to wait in the lobby until his arrived. D/C at 1400 with belongings.
--- NOTE | 2017-02-24 16:14 | NUR ---
Social Work: Discharge D: EMR reviewed. Pt is on day 2 of hospitalization. Pt discussed in multidisciplinary rounds and is medically stable for discharge home today. No SW needs identified, no MD orders received. Pt's discharge discussed with MD - no other concerns identified. Pt to transport home via POV with spouse today. SW discussed rx needs at discharge and concerns regarding costs. Pt provided with SW phone number for possible assistance with new rx costs. SW updated RN in multidisciplinary rounds. Pt did not have concerns with rx. A: Pt who is independent at baseline P: Pt discharged home with spouse today via POV. Pt's discharge discussed with MD - no other concerns identified. No social work needs identified, no MD orders received. PADILLA Osborn
== END 2017-02-24 14:08 | disposition home or self-care (01) | DRG 247 ==
LOC: EDBD 17:01 → SED 17:01 → CCU 19:30 → PCC 02-23 16:02
PROVIDERS: ADMIT Internal Medicine Cardiovascular Disease; ATTEND Hospitalist
PROC: 027034Z Dilation of Coronary Artery, One Artery with Drug-eluting Intraluminal Device, Percutaneous Approach (ICD-10-PCS; principal; 2017-02-22)
PROC: 4A023N7 Measurement of Cardiac Sampling and Pressure, Left Heart, Percutaneous Approach (ICD-10-PCS; 2017-02-22)
PROC: B2111ZZ Fluoroscopy of Multiple Coronary Arteries using Low Osmolar Contrast (ICD-10-PCS; 2017-02-22)
DX: I21.02 ST elevation (STEMI) myocardial infarction involving left anterior descending coronary artery (principal); I25.119 Atherosclerotic heart disease of native coronary artery with unspecified angina pectoris; I25.84 Coronary atherosclerosis due to calcified coronary lesion; F17.210 Nicotine dependence, cigarettes, uncomplicated; Z85.46 Personal history of malignant neoplasm of prostate